=== PATIENT | female | born 1965 | race Caucasian/White ===

== ENCOUNTER 2018-01-04 23:15 | Emergency (ER) | payer OTHER ==
[~2018-01-04] VITALS: Ht 177.8 cm; Wt 60.0 kg
[2018-01-04 23:18] VITALS: BP 117/81
== END 2018-01-05 01:33 | disposition home or self-care (01) ==
LOC: ED 01-05 01:08
DX: S63.631A Sprain of interphalangeal joint of left index finger, initial encounter (principal); M54.42 Lumbago with sciatica, left side; X58.XXXA Exposure to other specified factors, initial encounter; Y93.89 Activity, other specified; Y99.8 Other external cause status; Y92.89 Other specified places as the place of occurrence of the external cause
CPT/HCPCS: 29130; 99284